=== PATIENT | male | born 1950 | race Caucasian/White ===

== ENCOUNTER 2018-02-19 09:01 | Emergency (ER) | payer OTHER, MEDICARE ==
[~2018-02-19] VITALS: Ht 182.8 cm; Wt 95.3 kg
[~2018-02-19 09:01] MED LIST: ANTIVERT/2525 MG PO; KEFLEX500 MG PO; PERCOCET 325 MG1 TA7 PO
[2018-02-19] MEDS ORDERED: CIPRO500 MG PO (09:28)
== END 2018-02-19 09:32 | disposition home or self-care (01) ==
LOC: ED 09:01
DX: S91.331A Puncture wound without foreign body, right foot, initial encounter (principal); Z88.8 Allergy status to other drugs, medicaments and biological substances; Z87.891 Personal history of nicotine dependence; W22.8XXA Striking against or struck by other objects, initial encounter; Y93.89 Activity, other specified; Y92.89 Other specified places as the place of occurrence of the external cause; Y99.9 Unspecified external cause status

== ENCOUNTER → 2020-11-27 | Outpatient (CLI) | payer OTHER ==
[~2020-11-27] MED LIST changes: +ARTHRITIS PAIN100 GM T; +ASPIRIN81 M1 PO; +CIPRO500 MG PO; +FISH OIL 1,0001 EAC4 PO; +GLUCOPHAGE1000 MG PO; +GLUCOSAMINE HC500 M1 PO; +LISINOPRIL5 MG PO; +MECLIZINE HCL25 M2 PO; +SIMVASTATIN40 MG PO
== END | disposition home or self-care (01) ==
LOC: CT 00:39 → CARD 10:00
PROVIDERS: ATTEND Nurse Practitioner Family
DX: R06.00 Dyspnea, unspecified (principal); K44.9 Diaphragmatic hernia without obstruction or gangrene; K80.20 Calculus of gallbladder without cholecystitis without obstruction; I25.10 Atherosclerotic heart disease of native coronary artery without angina pectoris; Z87.891 Personal history of nicotine dependence

== ENCOUNTER 2021-03-06 10:13 | Emergency (ER) | payer OTHER ==
[~2021-03-06] VITALS: Wt 93.0 kg
[2021-03-06 10:52] LABS: BASO # 0.1 10*3/uL (0.0-0.1); BASO % 0.7 % (0.0-1.0); EOS # 0.2 10*3/uL (0.0-0.4); HEMATOCRIT 30.9 % (42.0-52.0); LYMPH # 1.3 10*3/uL (1.3-4.4); MEAN CELL VOLUME 79.8 fl (80.0-94.0); MEAN CORPUSCULAR HGB CONC 30.1 g/dl (33.0-37.0); MEAN PLATELET VOLUME 9.1 fl (9.6-12.3); MONO # 0.5 10*3/uL (0.1-1.0); NEUT # 5.2 10*3/uL (2.3-7.9); NEUT % 70.5 % (47.0-73.0); PLATELET COUNT AUTOMATED 212 10*3/uL (130-400); RED BLOOD COUNT 3.87 10*6/uL (4.50-5.90); RED CELL DISTRI WIDTH 14.8 % (0-14.5); WHITE BLOOD COUNT 7.4 10*3/uL (4.8-10.8)
[2021-03-06 11:19] LABS: ALBUMIN 3.8 gm/dl (3.1-4.5); ALKALINE PHOSPHATASE 71 U/L (45-117); BUN 25 mg/dl (7-24); CHLORIDE 103 mmol/L (98-107); CREATININE 1.25 mg/dL (0.70-1.30); POTASSIUM 4.8 mmol/L (3.5-5.1); SGOT/AST 7 IU/L (3-35); SGPT/ALT 20 U/L (12-78); SODIUM 135 mmol/L (136-145); TOTAL PROTEIN 6.8 gm/dL (6.4-8.2)
== END 2021-03-06 12:35 | disposition home or self-care (01) ==
LOC: ED 10:13
PROVIDERS: Internal Medicine
DX: R06.02 Shortness of breath (principal); J44.9 Chronic obstructive pulmonary disease, unspecified; Z88.8 Allergy status to other drugs, medicaments and biological substances; Z79.899 Other long term (current) drug therapy; Z79.82 Long term (current) use of aspirin

== ENCOUNTER → 2021-06-05 | Outpatient (CLI) | payer OTHER | END | disposition home or self-care (01) | LOC: CT 07:48 | PROVIDERS: ATTEND Nurse Practitioner Family | DX: I25.10 Atherosclerotic heart disease of native coronary artery without angina pectoris (principal); R05 Cough; R06.02 Shortness of breath; R63.4 Abnormal weight loss; K44.9 Diaphragmatic hernia without obstruction or gangrene ==